=== PATIENT | female | born 1975 | race Asian ===

== ENCOUNTER 2016-12-20 09:16 | Outpatient (CLI) | payer OTHER ==
--- NOTE | 2016-12-20 13:03 | Mammography Report ---
DIGITAL DIAGNOSTIC BILATERAL MAMMOGRAM: 12/20/2016 CLINICAL INDICATION: Left breast pain. TECHNIQUE: Bilateral CC and MLO views, left true lateral view. The patient described the pain as thro ughout the entire lateral half of the breast, so no marker was placed. COMPARISON: 10/04/2015, 09/20/2015, 09/10/2015, 01/29/2012. FINDINGS: The breasts demonstrate heterogeneously dense fibroglandular parenchyma bilaterally. Postb iopsy changes in the left outer central breast are stable. No suspicious masses, clustered microcalci fications, or regions of architectural distortion are identified. IMPRESSION: BENIGN FINDINGS. RECOMMENDATION: ROUTINE ANNUAL SCREENING UNLESS OTHERWISE CLINICALLY INDICATED. BIRADS CATEGORY 2-BENIGN FINDINGS. STANDARD QUALIFYING STATEMENTS 1. This examination was reviewed with the aid of Computer-Aided Detection (CAD). 2. A negative or benign imaging report should not delay biopsy if clinically suspicious findings are present. Consider surgical consultation if warranted. More than 5% of cancers are not identified by i maging. 3. Dense breasts may obscure an underlying neoplasm. JOB #: [id number] EXT JOB #:[id number]
== END 2016-12-20 09:17 | disposition home or self-care (01) ==
LOC: DI 09:16
PROVIDERS: ATTEND Family Medicine
DX: N64.4 Mastodynia (principal)
CPT/HCPCS: 77066

== ENCOUNTER 2017-01-02 08:00 | Outpatient (CLI) | payer OTHER ==
[2017-01-02 18:55] LABS: BASOPHILS # (AUTO) 0.1 10^3/uL (0.0-0.1); BASOPHILS % (AUTO) 0.7 %; EOSINOPHILS # (AUTO) 0.2 10^3/uL (0.0-0.7); EOSINOPHILS % (AUTO) 2.9 %; HCT - HEMATOCRIT 41.3 % (37.0-47.0); HGB - HEMOGLOBIN 13.7 g/dL (12.0-16.0); LYMPHOCYTES # (AUTO) 2.8 10^3/uL (1.5-3.5); LYMPHOCYTES % (AUTO) 35.3 %; MEAN CORPUSCULAR HEMOGLOBIN 28.7 pg (27.0-31.0); MEAN CORPUSCULAR HGB CONC 33.3 g/dL (32.0-36.0); MEAN CORPUSCULAR VOLUME 86.3 fL (81.0-99.0); MEAN PLATELET VOLUME 7.5 fL (7.9-10.8); MONOCYTES # (AUTO) 0.5 10^3/uL (0.0-1.0); MONOCYTES % (AUTO) 6.3 %; NEUTROPHILS # (AUTO) 4.3 10^3/uL (1.5-6.6); NEUTROPHILS % (AUTO) 54.8 %; NUCLEATED RED BLOOD CELLS AUTO 0.2 /100WBC; RED BLOOD COUNT 4.78 10^6/uL (4.20-5.40); RED CELL DISTRIBUTION WIDTH 13.4 % (12.0-15.0); UNCORRECTED WHITE BLOOD COUNT 7.9 x10^3/uL; WHITE BLOOD COUNT 7.9 x10^3/uL (4.8-10.8)
[2017-01-02 19:29] LABS: URIC ACID 4.7 mg/dL (2.6-7.2)
== END 2017-01-02 08:01 | disposition home or self-care (01) ==
LOC: LAB.WCP 08:00
PROVIDERS: ATTEND Family Medicine
DX: M25.50 Pain in unspecified joint (principal)
CPT/HCPCS: 36415; 84550; 85025; 85651; 86140; 86200; 86430

== ENCOUNTER 2017-01-09 16:33 | Outpatient (CLI) | payer OTHER ==
--- NOTE | 2017-01-10 12:45 | MRI Report ---
EXAM: RIGHT MIDFOOT MRI WITHOUT CONTRAST EXAM DATE: 01/09/2017 05:25 PM. CLINICAL HISTORY: Posterolateral right midfoot pain. COMPARISON: None. TECHNIQUE: Multiplanar, multisequence T1-weighted and fluid-sensitive sequences of the midfoot withou t contrast. Other: An external marker was placed in the area of the patient's pain. FINDINGS: Bones: There is an approximately 1 x 0.9 x 0.6 cm subcortical cyst at the base of the third metatarsa l. Mild marrow edema within the proximal third of the third metatarsal. No acute fracture. Articular Cartilage: Unremarkable. Ligaments: The visualized intertarsal, intermetatarsal, and tarsometatarsal ligaments are intact. Thi s includes the Lisfranc ligament. The visualized collateral ligaments are intact. Tendons: There is mild focal distal flexor hallucis longus tenosynovitis. There is mild focal peronea l brevis tenosynovitis at the level of the distal calcaneus. Musculature: There is focal edema signal within the proximal lateral aspect of the extensor digitorum brevis muscle at the level of the calcaneocuboid joint. No muscle fatty atrophy. Other: No effusions. The visualized portion of the tarsal tunnel is unremarkable. Mild subcutaneous e blank at the dorsal lateral aspect of the midfoot. IMPRESSION: 1. An approximately 1 x 0.9 x 0.6 cm subcortical cyst with surrounding mild marrow edema at the base of the third metatarsal. This may be degenerative or posttraumatic in etiology. No acute fracture. 2. Mild focal distal flexor hallucis longus tenosynovitis and mild focal peroneal brevis tenosynoviti s. 3. Focal edema within the proximal lateral aspect of the extensor digitorum brevis muscle which may r epresent strain or contusion or inflammation. 4. Mild subcutaneous edema at the dorsolateral aspect of the midfoot. [facility] MUSCULOSKELETAL RADIOLOGY SECTION Referring Provider Line: [phone] SITE ID: [id number]
== END 2017-01-09 16:34 | disposition home or self-care (01) ==
LOC: DI 16:33
PROVIDERS: ATTEND Family Medicine
DX: M65.871 Other synovitis and tenosynovitis, right ankle and foot (principal); M85.671 Other cyst of bone, right ankle and foot

== ENCOUNTER 2018-01-08 11:10 | Outpatient (CLI) | payer OTHER | END 2018-01-08 11:11 | disposition home or self-care (01) | LOC: SC 11:10 | PROVIDERS: ATTEND Internal Medicine Pulmonary Disease | DX: G47.33 Obstructive sleep apnea (adult) (pediatric) (principal); E66.01 Morbid (severe) obesity due to excess calories; Z68.41 Body mass index [BMI] 40.0-44.9, adult | CPT/HCPCS: 99203; 99212 ==

== ENCOUNTER 2018-04-06 00:26 | Outpatient (CLI) | payer OTHER | END 2018-04-06 00:27 | disposition critical access hospital (66) | LOC: EMS 00:26 | PROVIDERS: ATTEND Surgery | DX: M54.9 Dorsalgia, unspecified (principal) | CPT/HCPCS: A0425; A0427 ==

== ENCOUNTER 2018-04-06 00:46 | Emergency (ER) | payer OTHER ==
[2018-04-06 01:44] LABS: BILIRUBIN,URINE NEGATIVE (NEGATIVE); GLUCOSE, URINE (UA) NEGATIVE (NEGATIVE); KETONES,URINE (UA) NEGATIVE (NEGATIVE); LEUKOCYTE ESTERASE, URINE NEGATIVE (NEGATIVE); NITRITE,URINE NEGATIVE (NEGATIVE); OCCULT BLOOD,URINE SMALL (NEGATIVE); PROTEIN,URINE NEGATIVE (NEGATIVE); UROBILINOGEN,URINE 0.2 (NORMAL) E.U./dL (NORMAL)
[2018-04-06 01:45] LABS: CLARITY,URINE CLEAR (CLEAR)
--- NOTE | 2018-04-06 01:55 | ED Physician Documentation ---
PD HPI BACK PAIN - Stated complaint Stated Complaint: BACK PAIN - Chief complaint Chief Complaint: Back Pain - History obtained from History obtained from: Patient - History of Present Illness Timing - onset: How many weeks ago (2 weeks) Timing - details: Abrupt onset, Intermittant Pain level now: 6 Location: Right, Other (flank) Quality: Pain Worsened by: Movement Similar symptoms before: Has not had sx before Recently seen: Not recently seen - Additional information Additional information: c/o 2 weeks of intermittent, episodic right flank pain radiating to right mid- level back (upper paralumbar). No inciting factors, but worse with movement. Denies nausea, vomiting. Review of Systems Cardiac: reports: Reviewed and negative Respiratory: reports: Reviewed and negative GI: reports: Abdominal Pain. denies: Abdominal Swelling, Nausea, Vomiting, Constipation, Diarrhea : denies: Dysuria, Frequency, Hematuria Skin: denies: Rash Musculoskeletal: denies: Extremity swelling PD PAST MEDICAL HISTORY - Past Medical History Cardiovascular: None Respiratory: None - Past Surgical History Past Surgical History: No Ortho: Arthroscopic surgery, Other - Present Medications Home Medications: Ambulatory Orders Medication Instructions Recorded Confirmed Hydrocodone/Acetaminophen [[place] 1 each PO Q6H PRN #15 tablet 10/27/14 5-325 Tablet] Emtricitabine/Tenofovir [T[place] 1 each PO DAILY #30 tablet 09/15/15 200 mg-300 mg Tablet] - Allergies Allergies/Adverse Reactions: Allergies Allergy/AdvReac Type Severity Reaction Status Date / Time No Known Drug Allergies Allergy Verified 04/06/18 00:59 - Social History Does the pt smoke?: No Smoking Status: Never smoker Does the pt drink ETOH?: Yes Does the pt have substance abuse?: No - Immunizations Immunizations are current?: Yes - POLST Patient has POLST: No PD ED PE NORMAL - Vitals Vital signs reviewed: Yes - General General: Alert and oriented X 3, Well developed/nourished, Other (appears uncomfortable) - Cardiac Cardiac: RRR, No murmur - Respiratory Respiratory: No respiratory distress, Clear bilaterally - Abdomen Abdomen: Soft, Non distended, Other (mild TTP RUQ, epigastrium, without rebound or guarding) - Back Back: No CVA TTP - Derm Derm: Normal color, Warm and dry, No rash - Extremities Extremities: No edema Results - Vitals Vitals: Oxygen O2 Source Room air - Labs Labs: Laboratory Tests 04/06/18 04/06/18 04/06/18 01:30 01:39 02:29 WBC 7.9 RBC 4.89 Hgb 14.2 Hct 42.8 MCV 87.6 MCH 29.1 MCHC 33.2 RDW 13.2 Plt Count 288 MPV 7.0 L Neut # (Auto) 5.3 Lymph # (Auto) 1.9 [place] # (Auto) 0.5 Eos # (Auto) 0.3 Baso # (Auto) 0.0 Absolute Nucleated RBC 0.00 Nucleated RBC % 0.1 Sodium Potassium Chloride Carbon Dioxide Anion Gap BUN Creatinine Estimated GFR (MDRD) Glucose Calcium Total Bilirubin AST ALT Alkaline Phosphatase Total Protein Albumin Globulin Albumin/Globulin Ratio Lipase Urine Color LT. YELLOW Urine Clarity CLEAR Urine pH 7.0 Ur Specific [place] 1.010 1.010 Urine Protein NEGATIVE Urine Glucose (UA) NEGATIVE Urine Ketones NEGATIVE Urine Occult Blood SMALL H Urine Nitrite NEGATIVE Urine Bilirubin NEGATIVE Urine Urobilinogen 0.2 (NORMAL) Ur Leukocyte Esterase NEGATIVE Urine RBC 0-5 Urine WBC 0-3 Ur Squamous Epith Cells NONE SEEN Urine Bacteria None Seen Ur Microscopic Review INDICATED Urine Culture Comments NOT INDICATED Urine HCG, Qual NEGATIVE 04/06/18 02:29 WBC RBC Hgb Hct MCV MCH MCHC RDW Plt Count MPV Neut # (Auto) Lymph # (Auto) [place] # (Auto) Eos # (Auto) Baso # (Auto) Absolute Nucleated RBC Nucleated RBC % Sodium 139 Potassium 3.7 Chloride 106 Carbon Dioxide 24 Anion Gap 9.0 BUN 14 Creatinine 0.4 Estimated GFR (MDRD) 174 Glucose 125 H Calcium 8.6 Total Bilirubin 0.6 AST 20 ALT 30 Alkaline Phosphatase 49 Total Protein 7.2 Albumin 4.0 Globulin 3.2 Albumin/Globulin Ratio 1.3 Lipase 32 Urine Color Urine Clarity Urine pH Ur Specific [place] Urine Protein Urine Glucose (UA) Urine Ketones Urine Occult Blood Urine Nitrite Urine Bilirubin Urine Urobilinogen Ur Leukocyte Esterase Urine RBC Urine WBC Ur Squamous Epith Cells Urine Bacteria Ur Microscopic Review Urine Culture Comments Urine HCG, Qual - Rads (name of study) CT A/P Radiology: Prelim report reviewed, See rad report PD MEDICAL DECISION MAKING - ED course Complexity details: reviewed results, re-evaluated patient, considered differential, d/w patient Departure - Departure Disposition: 01 Home, Self Care Clinical Impression: Right flank pain Condition: Good Instructions: ED Abdominal Pain Unkn Cause, ED Flank Pain Uncertain Cause, ED Neck Back Pain General Follow-Up: Nesha Dunne DO [Primary Care Provider] - Within 3 Days Discharge Date/Time: 04/06/18 05:03
[2018-04-06 02:03] LABS: BACTERIA,URINE None Seen /HPF (None Seen); RBC,URINE 0-5 /HPF (0-5); SQUAMOUS EPITHELIAL CELL,UR NONE SEEN (<= Few)
[2018-04-06 02:32] LABS: HCG UR QUAL NEGATIVE
[2018-04-06] MEDS ORDERED: KETOROLAC 30 MG/ML VIAL IVP STA (02:32)
[2018-04-06 02:40] LABS: BASOPHILS % (AUTO) 0.4 %; EOSINOPHILS # (AUTO) 0.3 10^3/uL (0.0-0.7); EOSINOPHILS % (AUTO) 3.8 %; HGB - HEMOGLOBIN 14.2 g/dL (12.0-16.0); LYMPHOCYTES # (AUTO) 1.9 10^3/uL (1.5-3.5); LYMPHOCYTES % (AUTO) 23.4 %; MEAN CORPUSCULAR HEMOGLOBIN 29.1 pg (27.0-31.0); MEAN CORPUSCULAR HGB CONC 33.2 g/dL (32.0-36.0); MEAN CORPUSCULAR VOLUME 87.6 fL (81.0-99.0); MONOCYTES # (AUTO) 0.5 10^3/uL (0.0-1.0); MONOCYTES % (AUTO) 5.8 %; NEUTROPHILS # (AUTO) 5.3 10^3/uL (1.5-6.6); NEUTROPHILS % (AUTO) 66.6 %; PLT - PLATELET COUNT 288 10^3/uL (130-450); RED BLOOD COUNT 4.89 10^6/uL (4.20-5.40); RED CELL DISTRIBUTION WIDTH 13.2 % (12.0-15.0); WHITE BLOOD COUNT 7.9 x10^3/uL (4.8-10.8)
[2018-04-06 02:45] LABS: ALBUMIN/GLOBULIN RATIO 1.3 (1.0-2.2); BILIRUBIN,TOTAL 0.6 mg/dL (0.2-1.0); CALCIUM 8.6 mg/dL (8.5-10.3); CREATININE 0.4 mg/dL (0.4-1.0); TOTAL PROTEIN 7.2 g/dL (6.7-8.2)
[2018-04-06] MEDS ORDERED: IOVERSOL 320 100 ML VIAL IVP ONE ×2 (02:56→03:13)
--- NOTE | 2018-04-06 03:37 | CT Report ---
Reason: abd. pain Procedure Date: 04/06/2018 Accession Number: [id number] / [id number] Procedure: CT - Abdomen/Pelvis W/ CPT Code: FULL RESULT: EXAM: CT ABDOMEN AND PELVIS EXAM DATE: 04/06/2018 03:04 AM. CLINICAL HISTORY: Abd. pain. COMPARISONS: ABDOMEN/PELVIS W/O 10/27/2014 7:27 PM. TECHNIQUE: Routine helical CT imaging was performed through the abdomen and pelvis. IV contrast: OPTIRAY 320 100mL. Enteric contrast: No. Reconstructions: Coronal and sagittal. In accordance with CT protocol optimization, one or more of the following dose reduction techniques were utilized for this exam: automated exposure control, adjustment of mA and/or KV based on patient size, or use of iterative reconstructive technique. FINDINGS: Lung Bases: Unremarkable. Liver: Normal. No masses. Gallbladder/Bile Ducts: Unremarkable. Spleen: Normal. Pancreas: Normal. Adrenal Glands: Normal. Kidneys: Normal. No masses or hydronephrosis. Peritoneal Cavity/Bowel: Normal. No free fluid, free air or adenopathy. No masses or acute inflammatory process. The appendix is well visualized and normal. Pelvic Organs: An IUD is noted in the uterus. No pelvic adenopathy or free fluid. Vasculature: No aneurysms or other significant abnormality. Bones: No significant abnormality. Other: None. IMPRESSION: No evident etiology for patient's pain. IUD in the uterus. [facility]
[2018-04-06 03:52] VITALS: BP 149/72
== END 2018-04-06 05:03 | disposition home or self-care (01) ==
LOC: EDUNIT# → ED 00:46
DX: R10.9 Unspecified abdominal pain (principal)
CPT/HCPCS: 36415; 74177; 80053; 81001; 81025; 83690; 85025; 96374; 99283; 99284; Q9967; 81003; 87086

== ENCOUNTER 2018-05-27 09:29 | Outpatient (CLI) | payer OTHER ==
[2018-05-27 10:44] LABS: HCG UR QUAL NEGATIVE
[2018-05-27] MEDS ORDERED: SINCALIDE 5 MCG VIAL ONE (12:30)
[2018-05-27] MEDS ORDERED: SINCALIDE IV ONE (14:20)
[2018-05-27] MEDS ORDERED: SODIUM CHLORIDE 0.9% IV ONE (14:20)
--- NOTE | 2018-05-27 16:09 | Nuclear Medicine Report ---
Reason: ABDOMINAL PAIN,EPIGASTRIC Procedure Date: 05/27/2018 Accession Number: [id number] / [id number] Procedure: NM - Hepatobiliary HIDA w/ Rx CPT Code: FULL RESULT: EXAM: HEPATOBILIARY SCAN WITH CCK/KINEVAC ADMINISTRATION EXAM DATE: 05/27/2018 11:25 AM. CLINICAL HISTORY: ABDOMINAL PAIN,EPIGASTRIC. COMPARISON: None. TECHNIQUE: Following the intravenous administration of 4.7 mCi of Tc99m Mebrofenin, a hepatobiliary scan was done centered on the liver and gallbladder in multiple sequential images and projections. Following the intravenous administration of 2.1 mcg of CCK/ Kinevac over the course of approximately 60 minutes, dynamic imaging was done and the gallbladder ejection fraction was calculated. FINDINGS: Normal extraction of tracer from the blood pool indicating normal hepatocellular function. The liver size and shape is grossly within normal limits. Appearance of tracer in the biliary tree as early as 5 minutes, within normal limits. Appearance of tracer in the gallbladder as early as 50 minutes, within normal limits, with good progression of filling throughout the remainder of the initial hour. Appearance of tracer in the small bowel as early as 10 minutes, within normal limits. With CCK administration, gallbladder ejection fraction is calculated to be 32%, below the normal range (> 35%). The patient did not report symptoms after CCK administration. No evidence of enteric reflux into the stomach. No significant collection of tracer remaining in the common bile duct by the end of the study. IMPRESSION: 1. No scintigraphic evidence of acute cholecystitis. 2. Patent common bile duct. 3. Gallbladder ejection fraction is below the normal range, nonspecific but could be seen in the setting of chronic cholecystitis. 4. Reversal of the normal sequence of visualization of the gallbladder and small bowel, nonspecific but could be seen in the setting of chronic cholecystitis. [facility]
== END 2018-05-27 09:30 | disposition home or self-care (01) ==
LOC: DI 09:29
PROVIDERS: ATTEND Internal Medicine Gastroenterology
DX: R10.13 Epigastric pain (principal)
CPT/HCPCS: 78227; 81025; J7040

== ENCOUNTER 2018-09-16 07:53 | Outpatient (CLI) | payer OTHER ==
--- NOTE | 2018-09-16 09:58 | XRAY Report ---
Reason: LOW BACK PAIN,CHRONIC Procedure Date: 09/16/2018 Accession Number: [id number] / [id number] Procedure: WCP - Lumbar Spine 2 View CPT Code: FULL RESULT: EXAM: LUMBOSACRAL SPINE RADIOGRAPHY EXAM DATE: 09/16/2018 08:08 AM. CLINICAL HISTORY: Low back pain, chronic. COMPARISONS: None. TECHNIQUE: 2 views. FINDINGS: Alignment: Normal. No spondylolisthesis or scoliosis. Bones: Five [id number] lumbar vertebral bodies are present. No fractures or bone lesions. Disks: There is a minimal marginal osteophytosis without loss of disk space height at L3-L4. Facets: Minimal facet arthropathy seen at the L5 level. Sacroiliac Joints: Unremarkable. Soft Tissues: Normal. The visualized bowel gas pattern is normal. IMPRESSION: Minimal degenerative changes. [facility]
== END 2018-09-16 07:54 | disposition home or self-care (01) ==
LOC: DI.WCP 07:53
PROVIDERS: ATTEND Family Medicine
DX: M54.5 Low back pain (principal); M47.816 Spondylosis without myelopathy or radiculopathy, lumbar region
CPT/HCPCS: 72100

== ENCOUNTER 2019-03-31 12:54 | Outpatient (CLI) | payer OTHER ==
--- NOTE | 2019-03-31 15:21 | SLEEP CARE CONSULTATION ---
Information from patient questionnaire entered by Cheryl Velez. I have reviewed and concur with the information entered by Cheryl Velez. This document represents the service I personally performed and the decisions made by me, Stephanie Mack MD, [facility]. History of Present Illness Previous diagnosis: Severe, Obstructive Sleep Apnea-Hypopnea Syndrome AHI: 51.9 Reason for follow up: annual (last seen 2018) Equipment type: CPAP Equipment obtained from: [employer] Mask style: Nasal pillows HPI additional information: HPI: Ms. Kern returned today for follow up of nasal CPAP therapy. She was diagnosed to have severe obstructive sleep apnea-hypopnea syndrome. The patient wears with a RespirCar [employer] NationWear nasal cushion mask. She reports using the device nightly and all through the night. She complained of no particular problem with the device such as soreness on the face, dry nose, epistaxis, nasal congestion or headache. She thinks that the pressure of 5 10 cmH2O is too low at first (she is not sure whether the ramp is on automatically or not). On the CPAP therapy she notices improvement in her sleep quality, and that she wakes up feeling fresher in the morning and more awake/alert during the day. The [place] Sleepiness Scale score 10. Her notices no snore at all. The average residual AHI is 0.7; and air leak, 0.9 L/min. The 90th percentile pressure is 9.4 cmH2O. CPAP Compliance Data - Data Reviewed with Patient Average duration of nightly device use: 7.9 Compliance rate %: 98 (180 days) Current pressure setting (cmH2O): 5-10 Humidity settin Average residual AHI: 0.7 Subjective Patient concerns: reports: condensation in mask/hose Initial [place] Sleepiness Scale score: 15 Current [place] Sleepiness Scale score: 10 Allergies and Home Medications Drug allergies reviewed: Yes Home medication list reviewed: Yes Review of Systems Review of systems same as previous: Yes Physical Exam Weight: 250 lb Weight change since last visit: +15 Impression and Plan IMPRESSION: 1. Obstructive Sleep Apnea-Hypopnea Syndrome, severe, with the patient doing well on nasal CPAP therapy. She continues to have excellent compliance and significant clinical improvement. The current pressure appears effective but not too comfortable. Overall, she is very satisfied with treatment and plans to continue with it long-term. I will raise the starting pressure a little. PLAN: 1. Set autoCPAP to 7 - 10 cmH2O. The patient is to disable the ramp. 2. Try to lose weight 3. Try ResMed N30i mask. 4. Return in one year for follow up or earlier if there is any problem with the treatment. I spent 100% of this visit face to face with the patient with greater than 50% of this was spent time counseling the patient and coordination of care.
== END 2019-03-31 12:55 | disposition home or self-care (01) ==
LOC: SC 12:54
PROVIDERS: ATTEND Internal Medicine Pulmonary Disease
DX: G47.33 Obstructive sleep apnea (adult) (pediatric) (principal)
CPT/HCPCS: 99212; 99213

== ENCOUNTER 2019-04-15 07:00 | Outpatient (CLI) | payer OTHER ==
[2019-04-15 11:51] LABS: BASOPHILS % (AUTO) 0.5 %; EOSINOPHILS # (AUTO) 0.3 10^3/uL (0.0-0.7); EOSINOPHILS % (AUTO) 5.2 %; HGB - HEMOGLOBIN 13.5 g/dL (12.0-16.0); LYMPHOCYTES # (AUTO) 2.2 10^3/uL (1.5-3.5); MEAN CORPUSCULAR HEMOGLOBIN 28.2 pg (27.0-31.0); MEAN CORPUSCULAR VOLUME 88.1 fL (81.0-99.0); MONOCYTES # (AUTO) 0.4 10^3/uL (0.0-1.0); MONOCYTES % (AUTO) 6.5 %; NEUTROPHILS # (AUTO) 3.4 10^3/uL (1.5-6.6); NEUTROPHILS % (AUTO) 53.3 %; PLT - PLATELET COUNT 290 10^3/uL (130-450); RED BLOOD COUNT 4.79 10^6/uL (4.20-5.40); RED CELL DISTRIBUTION WIDTH 13.3 % (12.0-15.0); WHITE BLOOD COUNT 6.3 x10^3/uL (4.8-10.8)
[2019-04-15 12:10] LABS: ALBUMIN 3.8 g/dL (3.2-5.5); ALBUMIN/GLOBULIN RATIO 1.3 (1.0-2.2); ALKALINE PHOSPHATASE 41 IU/L (42-121); ALT ALANINE AMINOTRANSFERASE 69 IU/L (10-60); AST ASPARTATE AMINOTRANSFERASE 35 IU/L (10-42); BILIRUBIN,TOTAL 0.8 mg/dL (0.2-1.0); BUN - BLOOD UREA NITROGEN 14 mg/dL (6-20); CALCIUM 8.4 mg/dL (8.5-10.3); CARBON DIOXIDE - CO2 24 mmol/L (21-32); CHLORIDE 104 mmol/L (101-111); CHOL/HDL RATIO 3.9 (<4.4); CHOLESTEROL 230 mg/dL; CREATININE 0.5 mg/dL (0.4-1.0); GFR - MDRD 134 (>89); GLUCOSE 110 mg/dL (70-100); HB2 TOTAL 13.5 g/dL; HDL CHOLESTEROL 59 mg/dL; HEMOGLOBIN A1C 0.57 g/dL; LDL CHOLESTEROL,CALCULATED 148 mg/dL; LDL/HDL RATIO 2.5 (<4.4); SODIUM 136 mmol/L (135-145); TOTAL PROTEIN 6.8 g/dL (6.7-8.2); VLDL CHOLESTEROL 23 mg/dL
== END 2019-04-15 23:59 | disposition home or self-care (01) ==
LOC: LAB.WCP 07:00
PROVIDERS: ATTEND Family Medicine
DX: Z00.00 Encounter for general adult medical examination without abnormal findings (principal)
CPT/HCPCS: 36415; 80053; 80061; 83036; 83721; 84443; 85025

== ENCOUNTER 2019-04-15 16:28 | Outpatient (CLI) | payer OTHER ==
--- NOTE | 2019-04-17 08:48 | Mammography Report ---
Reason: SCREENING MAMMO Procedure Date: 04/15/2019 Accession Number: [id number] / [id number] Procedure: RODRICK - Screening Mammo w/[facility] CPT Code: Final Report FULL RESULT: EXAM: Screening Mammo w/[facility] DATE: 04/15/2019 4:49 PM CLINICAL HISTORY: Screening encounter. History of early menses. History of benign left breast biopsy, excisional type in 2016. TECHNIQUE: (B) - Bilateral CC and MLO views were obtained. COMPARISON: 12/20/2016 through 01/29/2012. PARENCHYMAL PATTERN: (D) - The breast(s) demonstrate(s) heterogeneously dense fibroglandular parenchyma. FINDINGS: Postsurgical changes as well as a biopsy marker are again seen in the left breast, typically benign. There are no suspicious masses, calcifications, or areas of distortion. IMPRESSION: Benign findings. BI-RADS category 2. RECOMMENDATION: (ANNUAL) - Recommend routine annual screening mammography. BI-RADS CATEGORY: (2) - Benign Findings. STANDARD QUALIFYING STATEMENTS: 1. This examination was not reviewed with the aid of Computer-Aided Detection (CAD). 2. A negative or benign imaging report should not preclude biopsy if clinically suspicious findings are present. 3. Dense breasts may obscure an underlying neoplasm. 4. This examination was reviewed with the aid of 3D breast imaging (tomosynthesis).
== END 2019-04-15 16:29 | disposition home or self-care (01) ==
LOC: DI 16:28
DX: Z12.31 Encounter for screening mammogram for malignant neoplasm of breast (principal)
CPT/HCPCS: 77063; 77067

== ENCOUNTER 2020-04-06 09:44 | Outpatient (CLI) | payer OTHER ==
--- NOTE | 2020-04-06 13:00 | SLEEP CARE CONSULTATION ---
Information from patient questionnaire entered by Cheryl Velez. I have reviewed and concur with the information entered by Cheryl Velez. This document represents the service I personally performed and the decisions made by me, Stephanie Mack MD, [facility]. History of Present Illness Service Date and Time: 04/06/2020 0944 Previous diagnosis: Severe, Obstructive Sleep Apnea-Hypopnea Syndrome AHI: 51.9 (in 2016) Reason for follow up: annual (last seen 03/2019) Equipment type: CPAP Equipment obtained from: [employer] Mask style: Nasal Prior sleep studies: Yes Year and Where: 2016 - [facility] in [place], [place] HPI additional information: HPI: Ms. Kern returned today for follow up of nasal CPAP therapy. She was diagnosed to have severe obstructive sleep apnea-hypopnea syndrome. The patient wears with a Respironics DreamWear nasal cushion mask. She reports using the device nightly and all through the night. The compliance data show usage in 180 out of the past 180 nights, averaging 8.1 hours a night. She complained of no particular problem with the device such as soreness on the face, dry nose, epistaxis, nasal congestion or headache. She thinks that the pressure of 7 10 cmH2O is comfortable (raised from 5 10 cmH2O last year for comfort). On the CPAP therapy she notices improvement in her sleep quality, and that she wakes up feeling fresher in the morning and more awake/alert during the day. The [place] Sleepiness Scale score 15 (was 10). Her notices no snore at all. The average residual AHI is 0.7; and air leak, 2 L/min. The 90th percentile pressure is 9.7 cmH2O. CPAP Compliance Data - Data Reviewed with Patient Average duration of nightly device use: 8 hr 5 min Compliance rate %: 100 (180 days) Current pressure setting (cmH2O): 7-10 Humidity settin Average residual AHI: 0.7 Subjective Patient concerns: reports: mask leak noise, other (snore while using device) Current pressure setting perceived as: comfortable (occasionally uncomfortable) Initial [place] Sleepiness Scale score: 15 (in 2018) Current [place] Sleepiness Scale score: 15 Allergies and Home Medications Drug allergies reviewed: Yes Home medication list reviewed: Yes Review of Systems Review of systems same as previous: Yes Physical Exam Vital signs obtained and entered by: To minimize the risk of COVID-19 exposure, detailed exam was not performed. Height: 5 ft 6 in Weight: 258 lb Weight change since last visit: +9 Body Mass Index: 41.6 BMI Classification: Morbidly Obese Impression and Plan IMPRESSION: 1. Obstructive Sleep Apnea-Hypopnea Syndrome, severe, with the patient doing well on nasal CPAP therapy. She continues to have excellent compliance and significant clinical improvement. The current pressure appears effective but not too comfortable. Overall, she is very satisfied with treatment and plans to continue with it long-term. I will raise the starting pressure a little. PLAN: 1. Set autoCPAP to 7 - 10 cmH2O. The patient is to disable the ramp. 2. Try to lose weight 3. Try ResMed N30i mask. 4. Return in one year for follow up or earlier if there is any problem with the treatment. Visit Type: In Office Time Spent with Patient (minutes): 15 Provider Statement: I spent 100% of the Face to Face Visit with the patient with greater than 50% spent counseling the patient and coordination of care.
== END 2020-04-06 09:45 | disposition home or self-care (01) ==
LOC: SC 09:44
PROVIDERS: ATTEND Internal Medicine Pulmonary Disease
DX: G47.33 Obstructive sleep apnea (adult) (pediatric) (principal); E66.01 Morbid (severe) obesity due to excess calories; Z68.41 Body mass index [BMI] 40.0-44.9, adult
CPT/HCPCS: 99212; 99213

== ENCOUNTER 2020-08-13 09:15 | Outpatient (CLI) | payer OTHER ==
[2020-08-13 12:19] LABS: BASOPHILS % (AUTO) 0.7 %; EOSINOPHILS # (AUTO) 0.2 10^3/uL (0.0-0.7); EOSINOPHILS % (AUTO) 3.7 %; HCT - HEMATOCRIT 42.6 % (37.0-47.0); LYMPHOCYTES # (AUTO) 2.3 10^3/uL (1.5-3.5); LYMPHOCYTES % (AUTO) 38.6 %; MEAN CORPUSCULAR HGB CONC 32.9 g/dL (32.0-36.0); MEAN CORPUSCULAR VOLUME 88.2 fL (81.0-99.0); MEAN PLATELET VOLUME 10.2 fL (7.9-10.8); MONOCYTES # (AUTO) 0.3 10^3/uL (0.0-1.0); MONOCYTES % (AUTO) 5.6 %; NEUTROPHILS % (AUTO) 51.1 %; PLT - PLATELET COUNT 334 10^3/uL (130-450); RED BLOOD COUNT 4.83 10^6/uL (4.20-5.40); RED CELL DISTRIBUTION WIDTH 12.6 % (12.0-15.0); WHITE BLOOD COUNT 5.9 x10^3/uL (4.8-10.8)
[2020-08-13 12:36] LABS: CHOLESTEROL 202 mg/dL; HDL CHOLESTEROL 51 mg/dL; LDL CHOLESTEROL,CALCULATED 137 mg/dL; LDL/HDL RATIO 2.7 (<4.4); TRIGLYCERIDES 71 mg/dL; URIC ACID 5.9 mg/dL (2.6-7.2); VLDL CHOLESTEROL 14 mg/dL
[2020-08-13 12:48] LABS: THYROID STIMULATING HORMONE 1.82 uIU/mL (0.34-5.60)
[2020-08-13 12:52] LABS: ESTIMATED AVERAGE GLUCOSE 117 mg/dL (70-100); HEMOGLOBIN A1c% 5.7 % (4.27-6.07)
== END 2020-08-13 09:16 | disposition home or self-care (01) ==
LOC: LAB.N 09:15
PROVIDERS: ATTEND Family Medicine
DX: Z00.00 Encounter for general adult medical examination without abnormal findings (principal); R73.01 Impaired fasting glucose; M79.672 Pain in left foot
CPT/HCPCS: 36415; 80061; 83036; 83721; 84443; 84550; 85025

== ENCOUNTER 2020-08-13 10:47 | Outpatient (CLI) | payer OTHER ==
--- NOTE | 2020-08-13 11:42 | XRAY Report ---
PROCEDURE: Knee 4 View RT INDICATIONS: RIGHT KNEE PAIN TECHNIQUE: 4 views of the right knee(s) were acquired. COMPARISON: None. FINDINGS: No acute fracture seen. Coys-wb-ehqylmvv narrowing of the medial joint space. Scattered degenerative spurring and subchondral sclerosis. Soft tissues: No joint effusion. No suspicious soft tissue calcifications. IMPRESSION: Mild to moderate degenerative joint disease. If the patient's pain or other symptoms persist, consider further evaluation with MRI. Reviewed by: Doc Duggan MD on 08/13/2020 11:41 AM PDT Approved by: Doc Duggan MD on 08/13/2020 11:41 AM PDT Station ID: [id number]
--- NOTE | 2020-08-13 11:44 | XRAY Report ---
PROCEDURE: Foot 3 View LT INDICATIONS: LEFT FOOT PAIN TECHNIQUE: 3 views of the foot were acquired. COMPARISON: None. FINDINGS: Bones: No fractures or dislocations. No suspicious bony lesions. Unfused accessory navicular chroni c. Mild first MTP degenerative joint disease. Plantar and posterior calcaneal spurring. There is also midfoot joint degeneration. Soft tissues: No tibiotalar joint effusion. Achilles tendon appears normal. IMPRESSION: Degenerative changes as above. Reviewed by: Doc Duggan MD on 08/13/2020 11:43 AM PDT Approved by: Doc Duggan MD on 08/13/2020 11:43 AM PDT Station ID: [id number]
== END 2020-08-13 10:48 | disposition home or self-care (01) ==
LOC: DI 10:47
PROVIDERS: ATTEND Family Medicine
DX: M19.072 Primary osteoarthritis, left ankle and foot (principal); M17.11 Unilateral primary osteoarthritis, right knee

== ENCOUNTER 2021-02-10 13:04 | Outpatient (CLI) | payer OTHER ==
--- NOTE | 2021-02-23 08:38 | Mammography Report ---
BILATERAL DIGITAL SCREENING MAMMOGRAM 3D/2D: 02/10/2021 CLINICAL: Family history of breast cancer. Routine screening. Comparison is made to exams dated: 04/15/2019 mammogram, 12/20/2016 mammogram - [facility], 12/22/2015 localization, 12/22/2015 specimen, 12/22/2015 mammogram, and 12/21/2015 ultrasound - [facility]. The tissue of both breasts is heterogeneously dense. This may lower the sensitivity of m ammography. There is an oval equal density mass with a circumscribed margin in the right breast at 7 o'clock ante rior depth. No other significant masses, calcifications, or other findings are seen in either breast. IMPRESSION: INCOMPLETE: NEEDS ADDITIONAL IMAGING EVALUATION The oval equal density mass in the right breast is indeterminate. Mediolateral and spot compression views as well as additional views with possible ultrasound are recommended. This exam was interpreted at Station ID: [id number]. NOTE: For mammograms, a report in lay terms will be sent to the patient. Approximately 15% of breast malignancies will not be visualized mammographically. In the management of a palpable breast mass, a negative mammogram must not discourage biopsy of a clinically suspicious lesion. Electronically Signed By: Bryant King M.D. ddp/penrad:02/22/2021 13:29:53 ACR BI-RADS Category 0: Incomplete 3340F PARENCHYMAL PATTERN: (D) - The breast(s) demonstrate(s) heterogeneously dense fibroglandular parenchy ma. BI-RADS CATEGORY: (0) - 0 Mammo and [place] [id number] Immediate follow-up LATERALITY: (B)
== END 2021-02-10 13:05 | disposition home or self-care (01) ==
LOC: DI.N 13:04
DX: Z12.31 Encounter for screening mammogram for malignant neoplasm of breast (principal); R92.8 Other abnormal and inconclusive findings on diagnostic imaging of breast; Z80.3 Family history of malignant neoplasm of breast

== ENCOUNTER 2021-03-20 12:49 | Outpatient (CLI) | payer OTHER ==
--- NOTE | 2021-03-20 17:28 | XRAY Report ---
PROCEDURE: Shoulder 2 View LT INDICATIONS: LEFT SHOULDER PAIN TECHNIQUE: 3 views of the shoulder were acquired. COMPARISON: None. FINDINGS: Bones: No fractures or dislocations. There is mild acromioclavicular joint degeneration. No suspici ous bony lesions. Visualized ribs appear intact. Soft tissues: No suspicious soft tissue calcifications. IMPRESSION: 1. No fracture or dislocation. 2. Mild acromioclavicular joint degeneration. Reviewed by: Bryant King MD on 03/20/2021 4:26 PM [facility] Approved by: Bryant King MD on 03/20/2021 4:26 PM [facility] Station ID: [id number]
--- NOTE | 2021-03-20 17:30 | XRAY Report ---
PROCEDURE: Knee 4 View RT INDICATIONS: ARTHRITIS RIGHT KNEE TECHNIQUE: 4 views of the right knee including bilateral weightbearing AP view were acquired. COMPARISON: 08/13/2020. FINDINGS: Bones: No fractures or dislocations. There is bilateral joint space narrowing in the medial compartm ents, moderate on the right and moderate to severe on the left. There is associated subchondral scler osis on the left. There is tricompartmental osteophytosis. No suspicious bony lesions. Soft tissues: There is a small joint effusion. No suspicious soft tissue calcifications. IMPRESSION: 1. Mild to moderate osteoarthritic changes in the right knee with moderate joint space narrowing in t he medial compartment. 2. Moderate to severe joint space narrowing demonstrated in the left medial compartment. Reviewed by: Bryant King MD on 03/20/2021 4:28 PM [place] Approved by: Bryant King MD on 03/20/2021 4:28 PM [facility] Station ID: [id number]
== END 2021-03-20 23:59 | disposition home or self-care (01) ==
LOC: DI.N 12:49
PROVIDERS: ATTEND Nurse Practitioner
DX: M17.0 Bilateral primary osteoarthritis of knee (principal); M25.512 Pain in left shoulder

== ENCOUNTER 2021-03-21 09:10 | Outpatient (CLI) | payer OTHER ==
[2021-03-21 09:48] VITALS: BP 159/103
--- NOTE | 2021-03-21 09:48 | SLEEP CARE CONSULTATION ---
Information from patient questionnaire entered by Isaac Pugh MA. I have reviewed and concur with the information entered by Isaac Pugh MA. This document represents the service I personally performed and the decisions made by me, Stephanie Mack MD, [facility]. History of Present Illness Service Date and Time: 03/21/2021 0910 Previous diagnosis: Severe, Obstructive Sleep Apnea-Hypopnea Syndrome AHI: 51.9 (in 2015) Reason for follow up: annual (LAST SEEN 03/2020) Equipment type: CPAP Equipment obtained from: [employer] Mask style: Nasal Prior sleep studies: Yes Year and Where: 2015 - [facility] in [facility] additional information: Ms. Kern returned today for follow up of nasal CPAP therapy. She was diagnosed to have severe obstructive sleep apnea-hypopnea syndrome. The patient wears with a RespirEbid.[email or web address].zwWear nasal cushion mask. She continues to use the device nightly and all through the night. The compliance data show usage in 168 out of the past 180 nights, averaging 7.9 hours a night. She complained of no particular problem with the device such as soreness on the face, dry nose, epistaxis, nasal congestion or headache. She thinks that the pressure of 9 - 13 cmH2O is comfortable (raised from 5 10 cmH2O last year for comfort). On the CPAP therapy she notices improvement in her sleep quality, and that she wakes up feeling fresher in the morning and more awake/alert during the day. The Phoenix Sleepiness Scale score 14 (was 15). Her notices no snore at all. The average residual AHI is 0.8; and air leak, 6.1 L/min. The 90th percentile pressure is 10.9 Sleep Study - Results Prior sleep studies: Yes Year and Where: 2015 - [facility] in [place], [place] CPAP Compliance Data - Data Reviewed with Patient Average duration of nightly device use: 7 HOURS 53 MINUTES Compliance rate %: 97 Current pressure setting (cmH2O): 9-13 Average residual AHI: 0.8 Central apnea: 0 Obstructive apnea: .7 Subjective Missed days of use due to: reports: travel Patient concerns: reports: mask leak noise Initial Phoenix Sleepiness Scale score: 15 (in 2017) Current Phoenix Sleepiness Scale score: 14 (IN 2020) Allergies and Home Medications Drug allergies reviewed: Yes Home medication list reviewed: Yes Review of Systems Review of systems same as previous: Yes Physical Exam Vital signs obtained and entered by: ADRIANNE HUBBARD Blood Pressure: 159/103 (pt in pain for hurt arm) Cuff size: wrist (right wrist, left arm is in bandage.) Heart Rate: 75 O2 Saturation: 98 Height: 5 ft 6 in Weight: 254 lb (info per pt, arm injury and did not want to be weighed) Body Mass Index: 41.0 BMI Classification: Morbidly Obese Impression and Plan IMPRESSION: 1. Obstructive Sleep Apnea-Hypopnea Syndrome, severe, with the patient doing well on nasal CPAP therapy. She continues to have excellent compliance and significant clinical improvement. The current pressure appears effective and comfortable. Overall, she is very satisfied with treatment and plans to continue with it long-term. The patient would like the pressure to go back down a little. PLAN: 1. Set autoCPAP to 8 - 12 cmH2O via the modem. 2. Try to lose weight 3. Return in one year for follow up or earlier if there is any problem with the treatment. She will be eligible for a new machine then (she got this ResMed AirSense 10 from [facility] in April of 2016). Follow up with Sleep Care in: 1 year Follow up recommended for: Weight management Visit Type: In Office Time Spent with Patient (minutes): 15 Provider Statement: I spent 100% of the Face to Face Visit with the patient with greater than 50% spent counseling the patient and coordination of care.
== END 2021-03-21 09:11 | disposition home or self-care (01) ==
LOC: SC 09:10
PROVIDERS: ATTEND Internal Medicine Pulmonary Disease
DX: G47.33 Obstructive sleep apnea (adult) (pediatric) (principal); E66.01 Morbid (severe) obesity due to excess calories; Z68.41 Body mass index [BMI] 40.0-44.9, adult
CPT/HCPCS: 99212

== ENCOUNTER 2021-03-23 08:40 | Outpatient (CLI) | payer OTHER ==
--- NOTE | 2021-03-24 11:57 | Mammography Report ---
UNILATERAL RIGHT DIGITAL DIAGNOSTIC MAMMOGRAM 3D/2D: 03/23/2021 CLINICAL: Patient returns today to evaluate a focal asymmetry in the right breast. Comparison is made to exams dated: 02/10/2021 mammogram, 04/15/2019 mammogram, 12/20/2016 mammogram - [facility], 12/22/2015 localization, 12/22/2015 specimen, and 12/22/2015 mammogram - [facility]. The tissue of right breast is heterogeneously dense. This may lower the sensitivity of mammography. There is an oval equal density mass with a circumscribed margin in the right breast at 7 o'clock ante rior depth. No other significant masses or calcifications are seen in the breast. IMPRESSION: INCOMPLETE: NEEDS ADDITIONAL IMAGING EVALUATION The oval equal density mass in the right breast is indeterminate. An ultrasound is recommended. This exam was interpreted at Station ID: [id number]. NOTE: For mammograms, a report in lay terms will be sent to the patient. Approximately 15% of breast malignancies will not be visualized mammographically. In the management of a palpable breast mass, a negative mammogram must not discourage biopsy of a clinically suspicious lesion. Electronically Signed By: Terry Bagley M.D., jr/natalya:03/23/2021 12:02:09 ACR BI-RADS Category 0: Incomplete 3340F PARENCHYMAL PATTERN: (D) - The breast(s) demonstrate(s) heterogeneously dense fibroglandular pardanielay walt. BI-RADS CATEGORY: (0) - 0 Ultrasound [id number] Immediate follow-up LATERALITY: (B)
--- NOTE | 2021-03-24 11:58 | Ultrasound Report ---
LIMITED ULTRASOUND OF RIGHT BREAST: 03/23/2021 CLINICAL: Patient returns today to evaluate a focal asymmetry in the right breast. Comparison is made to exams dated: 02/10/2021 mammogram, 04/15/2019 mammogram, 12/20/2016 mammogram - [facility], 12/22/2015 localization, 12/22/2015 specimen, and 12/22/2015 mammogram - [facility]. Color flow and real-time ultrasound of the right breast 7-8 o'clock region were performed. Shelby scal e images of the real-time examination were reviewed. There is a benign irregular cyst in the right breast at 7 o'clock anterior depth. This irregular cys t is anechoic with an abrupt boundary and posterior acoustic enhancement. IMPRESSION: BENIGN There is no sonographic evidence of malignancy. The irregular cyst in the right breast is consistent with a simple cyst and is benign. A 1 year screening mammogram is recommended. This exam was interpreted at Station ID: [id number]. Electronically Signed By: Terry Bagley M.D., jr/natalya:03/23/2021 12:03:13 Ultrasound BI-RADS: 2 Benign BI-RADS CATEGORY: (2) - 2 RECOMMENDATION: (ANNUAL) - Recommend routine annual screening mammography. [id number] 1 year screening LATERALITY: (B)
== END 2021-03-23 08:41 | disposition home or self-care (01) ==
LOC: DI 08:40
PROVIDERS: ATTEND Family Medicine
DX: N60.01 Solitary cyst of right breast (principal)

== ENCOUNTER 2021-05-10 07:42 | Outpatient (CLI) | payer OTHER ==
--- NOTE | 2021-05-10 11:43 | XRAY Report ---
PROCEDURE: Shoulder 3 View LT INDICATIONS: LEFT SHOULDER PX TECHNIQUE: 4 views of the shoulder were acquired. COMPARISON: Left shoulder radiographs 03/20/2021 FINDINGS: Bones: No acute fractures or dislocations. No suspicious bony lesions. Visualized ribs appear inta ct. Mild to moderate acromioclavicular joint osteoarthrosis. Soft tissues: No suspicious soft tissue calcifications. IMPRESSION: No acute osseous abnormality. [id number] acromioclavicular joint osteoarthrosis. I f symptoms persist or there is continued clinical concern, further evaluation with MRI or CT may be h elpful. Reviewed by: Brandon Garber MD on 05/10/2021 11:41 AM [facility] Approved by: Brandon Garber MD on 05/10/2021 11:41 AM PST Station ID: [id number]
== END 2021-05-10 07:43 | disposition home or self-care (01) ==
LOC: DI.WOS 07:42
PROVIDERS: ATTEND Physician Assistant
DX: M19.012 Primary osteoarthritis, left shoulder (principal)